=== PATIENT | female | born 1970 | race Caucasian/White ===

== ENCOUNTER → 2017-01-05 | Outpatient (CLI) | payer BC ==
[2017-01-05 08:32] LABS: ALT 41 U/L (9-52); AST 26 U/L (14-36); Anion Gap 15 mmol/L; Blood Urea Nitrogen 3 mg/dL (7-17); Calcium 9.6 mg/dL (8.4-10.2); Carbon Dioxide 24 mmol/L (22-30); Chloride 98 mmol/L (98-107); Glucose 111 mg/dL (74-99); Non-African American GFR(MDRD) >60 (>60 ml/min/1.73 sqM); Potassium 4.8 mmol/L (3.5-5.1); Sodium 137 mmol/L (137-145)
== END | disposition home or self-care (01) ==
LOC: LABWHC1 07:39
PROVIDERS: ATTEND Psychiatry & Neurology Neurology
DX: E87.1 Hypo-osmolality and hyponatremia (principal); E87.6 Hypokalemia
CPT/HCPCS: 36415; 80048; 84450; 84460

== ENCOUNTER → 2017-04-01 | Outpatient (CLI) | payer BC ==
--- NOTE | 2017-04-01 14:37 | MM ---
Reason for exam: screening (asymptomatic). Last mammogram was performed 1 year ago. History: Patient has history of endometrial cancer at age 26. Family history of breast cancer in grandmother, breast cancer in cousin, and breast cancer in aunt. Took hormonal contraceptives for 3 years beginning at age 19. Physical Findings: A clinical breast exam by your physician is recommended on an annual basis and results should be correlated with mammographic findings. MG Screening Mammo w CAD Bilateral CC and MLO view(s) were taken. Prior study comparison: March 31, 2016, bilateral MG screening mammo w CAD. February 03, 2015, bilateral MG screening mammo w CAD. The breast tissue is heterogeneously dense. This may lower the sensitivity of mammography. There is no discrete abnormality. No significant changes when compared with prior studies. ASSESSMENT: Negative, BI-RAD 1 RECOMMENDATION: Routine screening mammogram of both breasts in 1 year.
== END | disposition home or self-care (01) ==
LOC: RADMAMWWP 07:40
PROVIDERS: ATTEND Obstetrics & Gynecology
DX: Z12.31 Encounter for screening mammogram for malignant neoplasm of breast (principal)

== ENCOUNTER 2017-04-14 11:25 | Emergency (ER) | payer BC ==
[2017-04-14 11:28] VITALS: BP 146/73; RESP 20; TEMP 98.4
--- NOTE | 2017-04-14 14:30 | XR ---
EXAMINATION TYPE: XR foot complete bilateral DATE OF EXAM: 04/14/2017 1:58 PM COMPARISON: NONE HISTORY: Pain TECHNIQUE: 3 views bilateral feet FINDINGS: Right foot: No acute fractures are evident. Joint spaces are preserved. Soft tissues are unremarkable . Plantar calcaneal heel spurs present. Left foot: No acute fractures are evident. Joint spaces are preserved. Soft tissues are normal. Plant ar calcaneal heel spur is present. IMPRESSION: 1. Bilateral plantar calcaneal heel spurs. 2. No acute osseous abnormality.
--- NOTE | 2017-04-14 14:54 | ED ---
Extremity Problem HPI - General Chief complaint: Extremity Problem,Nontraumatic Stated complaint: feet pain Time Seen by Provider: 04/14/17 13:11 Source: patient, RN notes reviewed Mode of arrival: ambulatory Limitations: no limitations - History of Present Illness Initial comments: 46-year-old female presents to the emergency Department chief complaint of bilateral foot pain. Patient states she suffers from neuropathy. Patient states that her feet constantly hurt. She last today she's had this pain that radiates across her foot causes her right big toe to spasm. Patient states she was concerned due to the discomfort so she thought that she be evaluated. Patient denies any falls traumas or injuries. Patient states that she is not currently having any other symptoms. Patient denies any recent fever, chills, shortness of breath, chest pain, back pain, abdominal pain, nausea vomiting, numbness or tingling, dysuria or hematuria, constipation or diarrhea, headaches or visual changes, or any other current symptoms. - Related Data Home Medications Medication Instructions Recorded Confirmed Amitriptyline HCl [Amitriptyline 50 mg PO HS 04/14/17 04/14/17 HCl] Gabapentin [Neurontin] 300 mg PO TID 04/14/17 04/14/17 Levothyroxine Sodium [Synthroid] 100 mg PO DAILY 04/14/17 04/14/17 Naltrexone HCl [Revia] 50 mg PO DAILY 04/14/17 04/14/17 Olmesartan Medoxomil [Olmesartan 40 mg PO DAILY 04/14/17 04/14/17 Medoxomil] Sertraline [Zoloft] 50 mg PO DAILY 04/14/17 04/14/17 Allergies Allergy/AdvReac Type Severity Reaction Status Date / Time No Known Allergies Allergy Verified 04/14/17 11:28 Review of Systems ROS Statement: Those systems with pertinent positive or pertinent negative responses have been documented in the HPI. ROS Other: All systems not noted in ROS Statement are negative. Past Medical History Past Medical History: Hypertension, Thyroid Disorder Additional Past Medical History / Comment(s): neuropathy History of Any Multi-Drug Resistant Organisms: None Reported Additional Past Surgical History / Comment(s): D & C, cyst from ovary, Past Psychological History: Anxiety Smoking Status: Never smoker Past Alcohol Use History: Daily Past Drug Use History: None Reported General Exam - General Exam Comments Initial Comments: General: The patient is awake and alert, in no distress, and does not appear acutely ill. Neck: The neck is supple, there is no tenderness. Cardiovascular: There is a regular rate and rhythm. No murmur, rub or gallop is appreciated. Respiratory: Lungs are clear to auscultation, respirations are non-labored, breath sounds are equal. No wheezes, stridor, rales, or rhonchi. Musculoskeletal: Sensation intact with 2+ pulses throughout the bilateral lower extremities. Patient is far torsion ankles and feet. Minimal swelling noted to bilateral ankles. Patient does have some tenderness patient through the plantar fascia area bilaterally. No deformity. Neurological: CN II-XII intact, There are no obvious motor or sensory deficits. Coordination appears grossly intact. Speech is normal. Skin: Skin is warm and dry and no rashes or lesions are noted. Psychiatric: Normal mood and affect. Limitations: no limitations Course Vital Signs 04/14/17 11:26 Temperature 98.4 F Pulse Rate 108 H Respiratory 20 Rate Blood Pressure 146/73 O2 Sat by Pulse 100 Oximetry Medical Decision Making - Medical Decision Making 46-year-old female presents emergency Department chief complaint of bilateral feet pain. Patient does appear to have bilateral heel spurs. We discussed that this is something that can be causing her pain. Discussed this suspicious for plantar fasciitis. Discussed follow-up with or so and/or tipple worker. We did discuss return parameters all questions. She stated she understood and she is in the plan. She will be discharged home. - Radiology Data Radiology results: report reviewed, image reviewed Disposition Clinical Impression: Calcaneal spur of both feet, Plantar fasciitis, bilateral Disposition: HOME SELF-CARE Condition: Stable Instructions: Plantar Fasciitis (ED), Heel Spur (ED) Additional Instructions: Please use medication as discussed. Please follow up with family doctor if symptoms have not improved over the next two days. Please return to the emergency room if your symptoms increase or worsen or for any other concerns. Referrals: Stephanie Lombardi MD [Primary Care Provider] - 1-2 days Reginaldo Schwarz MD [Medical Doctor] - 1-2 days Time of Disposition: 14:54
[2017-04-14 15:05] VITALS: PULSE 80
== END 2017-04-14 15:05 | disposition home or self-care (01) ==
LOC: EC 11:25
DX: M72.2 Plantar fascial fibromatosis (principal); M77.32 Calcaneal spur, left foot; M77.31 Calcaneal spur, right foot; I10 Essential (primary) hypertension; E07.9 Disorder of thyroid, unspecified; F41.9 Anxiety disorder, unspecified; G62.9 Polyneuropathy, unspecified; Z79.899 Other long term (current) drug therapy
CPT/HCPCS: 99283

== ENCOUNTER → 2018-06-16 | Outpatient (CLI) | payer BC ==
--- NOTE | 2018-06-21 11:09 | MM ---
Reason for exam: screening (asymptomatic). Last mammogram was performed 1 year and 2 months ago. History: Patient has history of endometrial cancer at age 26. Family history of breast cancer in grandmother, breast cancer in cousin, and breast cancer in aunt. Took hormonal contraceptives for 3 years beginning at age 19. Physical Findings: A clinical breast exam by your physician is recommended on an annual basis and results should be correlated with mammographic findings. MG 3D Screening Mammo Wo Cad Bilateral CC and MLO view(s) were taken. Prior study comparison: April 01, 2017, bilateral MG screening mammo w CAD. March 31, 2016, bilateral MG screening mammo w CAD. The breast tissue is heterogeneously dense. This may lower the sensitivity of mammography. No suspicious abnormality. No significant changes when compared with prior studies. ASSESSMENT: Negative, BI-RAD 1 RECOMMENDATION: Routine screening mammogram of both breasts in 1 year.
== END | disposition home or self-care (01) ==
LOC: RADMAMWWP 07:25
PROVIDERS: ATTEND Obstetrics & Gynecology
DX: Z12.31 Encounter for screening mammogram for malignant neoplasm of breast (principal); Z80.3 Family history of malignant neoplasm of breast
CPT/HCPCS: 77063; 77067

== ENCOUNTER 2019-02-19 10:23 | Emergency (ER) | payer BC ==
[2019-02-19 10:26] VITALS: RESP 18; TEMP 98.3
--- NOTE | 2019-02-19 10:52 | XR ---
EXAMINATION TYPE: XR knee complete LT DATE OF EXAM: 02/19/2019 CLINICAL HISTORY: Fall injury this morning with pain. TECHNIQUE: Three views of the left knee are obtained. COMPARISON: None. FINDINGS: There is no acute fracture/dislocation evident in left knee. Mild tricompartment joint spa ce loss is seen. Overlying clothing or pannus material distal femur level is noted. There appears to be mild to moderate diffuse subcutaneous edema medially and laterally. Focal soft tissue swelling sup erior to the patella anterior to distal quadriceps tendon is noted, cannot exclude subcutaneous hemat parvez or injury. IMPRESSION: There is no acute fracture or dislocation in the left knee.
--- NOTE | 2019-02-19 10:53 | ED ---
Lower Extremity Injury HPI - General Chief Complaint: Extremity Injury, Lower Stated Complaint: LEFT KNEE INJURY Time Seen by Provider: 02/19/19 10:27 Source: patient Mode of arrival: wheelchair Limitations: no limitations - History of Present Illness Initial Comments: 48-year-old female presenting today for chief complaint of left knee pain. Patient states she was walking to her car to take her son to school when she slipped on ice falling on left knee. Patient states the knee twisted outwards, denies dislocation. Patient denies injury to the upper extremity, head injury loss of consciousness. Patient denies back or neck pain. Patient states it was her left knee that took most of the force. She denies pain at the left ankle. Patient denies numbness tingling loss sensation coolness or pallor of the extremity. Patient states she was initially able to weight-bear and walk however swelling has increased as well as the pain making it difficult to fully weight-bear. Remaining review of systems negative, patient denies any recent fever, chills, shortness of breath, chest pain, back pain, abdominal pain, nausea or vomiting, numbness or tingling, dysuria or hematuria, constipation or diarrhea, headaches or visual changes, or any other complaints. - Related Data Home Medications Medication Instructions Recorded Confirmed Gabapentin [Neurontin] 300 mg PO TID 04/14/17 02/19/19 Levothyroxine Sodium [Synthroid] 100 mg PO DAILY 04/14/17 02/19/19 Naltrexone HCl [Revia] 50 mg PO DAILY 04/14/17 02/19/19 Olmesartan Medoxomil 40 mg PO DAILY 04/14/17 02/19/19 Sertraline [Zoloft] 50 mg PO DAILY 04/14/17 02/19/19 Amitriptyline HCl [Elavil] 100 mg PO DAILY 02/19/19 02/19/19 Allergies Allergy/AdvReac Type Severity Reaction Status Date / Time No Known Allergies Allergy Verified 02/19/19 10:35 Review of Systems ROS Statement: Those systems with pertinent positive or pertinent negative responses have been documented in the HPI. ROS Other: All systems not noted in ROS Statement are negative. Past Medical History Past Medical History: Hypertension, Thyroid Disorder Additional Past Medical History / Comment(s): neuropathy History of Any Multi-Drug Resistant Organisms: None Reported Additional Past Surgical History / Comment(s): D & C, cyst from ovary, Past Psychological History: Anxiety Smoking Status: Never smoker Past Alcohol Use History: Daily Past Drug Use History: None Reported General Exam - General Exam Comments Initial Comments: General: The patient is awake and alert, in no distress, and does not appear acutely ill. Eye: +3 mm pupils are equal, round and reactive to light, extra-ocular movements are intact. No nystagmus. There is normal conjunctiva bilaterally. No signs of icterus. Ears, nose, mouth and throat: There are moist mucous membranes and no oral lesions. Neck: The neck is supple, there is no tenderness or JVD. Cardiovascular: There is a regular rate and rhythm. No murmur, rub or gallop is appreciated. Respiratory: Lungs are clear to auscultation, respirations are non-labored, breath sounds are equal. No wheezes, stridor, rales, or rhonchi. Musculoskeletal: Upon inspection of the knees bilaterally there is increased soft tissue swelling of the left knee as well as area of ecchymosis of the medial aspect of anterior knee. Patella midline. Patient is diffusely tender to palpation of the anterior left knee. No pain to palpation of left ankle or hip. Patient is able to fully range at the left ankle. She is able to extend at the left knee however states this is painful. Normal ROM, no tenderness of the right lower extremity as well as the upper extremities. Strength 5/5 at the left ankle and knee equal in comparison with the right. Sensation intact proximal and distal to injury site equal when compared to the unaffected extremity. Radial and DP pulses equal bilaterally 2+. Capillary refill < 2 seconds. Neurological: A&O x 3. CN II-XII intact, There are no obvious motor or sensory deficits. Coordination appears grossly intact. Speech is normal. Skin: Skin is warm and dry and no rashes or lesions are noted. Psychiatric: Cooperative, appropriate mood & affect, normal judgment. Limitations: no limitations Course Vital Signs 02/19/19 02/19/19 10:25 11:49 Temperature 98.3 F Pulse Rate 89 96 Respiratory 18 18 Rate Blood Pressure 133/75 105/70 O2 Sat by Pulse 96 96 Oximetry Medical Decision Making - Medical Decision Making 48-year-old female presented for mechanical fall. Soft tissue swelling and ecchymosis of the left knee noted. Extensor mechanism intact. Patient given ice. Patient refused pain medication at this time. Patient was able to initially weight-bear, stating pain has increased since fall. Since her mechanism intact. Patient neurovascularly intact. +2 DP pulses, warm lower extremities b/l. X-rays revealed no acute osseous injury. Concern for possible ligamentous. Patient was placed in knee immobilizer. Patient given presc ription for crutches however she refused stating she has a pair crutches at home. Patient struck to follow-up with orthopedist surgery outpatient in the next 1-2 days. Patient is agreeable to plan of care as well as discharge recommendations. Return parameters were discussed at length the patient verbalized understanding. I did discuss the case with her provider Dr. Diaz prior to patient's discharge agreeable plan of care as well as outpatient follow-up. In addition to palpation follow-up patient is instructed to rest ice compress and elevate the left knee. Disposition Clinical Impression: Left knee sprain Disposition: HOME SELF-CARE Condition: Good Instructions (If sedation given, give patient instructions): Knee Sprain (ED) Additional Instructions: Please use medication as discussed. Please follow-up with orthopedic surgery in the next 2-3 days. These use crutches for ambulation. Please return to emergency room if the symptoms increase or worsen or for any other concerns. Is patient prescribed a controlled substance at d/c from ED?: No Referrals: Stephanie Lombardi MD [Primary Care Provider] - 1-2 days Jose Adler MD [STAFF PHYSICIAN] - 1-2 days Time of Disposition: 10:56
[2019-02-19 11:52] VITALS: BP 105/70; PULSE 96
== END 2019-02-19 11:52 | disposition home or self-care (01) ==
LOC: EC 10:23
DX: S83.92XA Sprain of unspecified site of left knee, initial encounter (principal); I10 Essential (primary) hypertension; E07.9 Disorder of thyroid, unspecified; F41.9 Anxiety disorder, unspecified; G62.9 Polyneuropathy, unspecified; Z79.890 Hormone replacement therapy; Z79.899 Other long term (current) drug therapy; Z53.29 Procedure and treatment not carried out because of patient's decision for other reasons; W00.0XXA Fall on same level due to ice and snow, initial encounter; X50.1XXA Overexertion from prolonged static or awkward postures, initial encounter; Y93.01 Activity, walking, marching and hiking; Y92.89 Other specified places as the place of occurrence of the external cause
CPT/HCPCS: 99283

== ENCOUNTER → 2019-08-22 | Outpatient (CLI) | payer BC ==
--- NOTE | 2019-08-23 11:34 | MM ---
Reason for exam: screening (asymptomatic). Last mammogram was performed 1 year and 2 months ago. History: Patient has history of endometrial cancer at age 26. Family history of breast cancer in grandmother, breast cancer in cousin, and breast cancer in aunt. Took hormonal contraceptives for 3 years beginning at age 19. Physical Findings: A clinical breast exam by your physician is recommended on an annual basis and results should be correlated with mammographic findings. MG 3D Screening Mammo W/Cad Bilateral CC and MLO view(s) were taken. Prior study comparison: June 16, 2018, bilateral MG 3d screening mammo wo cad. April 01, 2017, bilateral MG screening mammo w CAD. The breast tissue is heterogeneously dense. This may lower the sensitivity of mammography. No suspicious abnormality. Prominent axillary lymph nodes bilaterally are unchanged. No significant changes when compared with prior studies. ASSESSMENT: Negative, BI-RAD 1 RECOMMENDATION: Routine screening mammogram of both breasts in 1 year.
== END | disposition home or self-care (01) ==
LOC: RADMAMWWP 07:35
PROVIDERS: ATTEND Obstetrics & Gynecology
DX: Z12.31 Encounter for screening mammogram for malignant neoplasm of breast (principal)
CPT/HCPCS: 77063; 77067

== ENCOUNTER 2020-07-11 07:53 | Day surgery (SDC) | payer BC ==
[2020-07-09 14:22] VITALS: BMI 41.4
[~2020-07-11 07:53] MED LIST: LACTATED RINGERS 1,000 ML IV SCH
[2020-07-11] MEDS ORDERED: LIDOCAINE 1% (10MG/ML) FOR IV START INTRADERMA ONE (08:30)
[2020-07-11 08:40] VITALS: TEMP 97.6
[2020-07-11] MEDS ORDERED: PROPOFOL 10 MG/ML 20 ML VIAL IV ONE (09:43)
[2020-07-11] MEDS ORDERED: IV FLUID CONTINUATION 1,000 ML IV ONE (09:57)
--- NOTE | 2020-07-11 10:09 | P.PCN ---
Date of Procedure: 07/11/20 Procedure(s) Performed: BRIEF HISTORY: Patient is a 49 [id number] [place] white female scheduled for an elective colonoscopy as a part of screening for colorectal neoplasia. PROCEDURE PERFORMED: Colonoscopy. PREOPERATIVE DIAGNOSIS: Screening for colon cancer. IV sedation per Anesthesia. PROCEDURE: After informed consent was obtained, the patient, was brought into the endoscopy unit. IV sedation was administered by Anesthesia under continuous monitoring. Digital rectal examination was normal. Initially the Olympus CF-160 flexible video colonoscope was then inserted in the rectum, gradually advanced into the cecum without any difficulty. Careful examination was performed as the scope was gradually being withdrawn. Ileocecal valve and the appendiceal orifice were visualized and appeared normal. Prep was fair.. Mucosa of the cecum, ascending colon, transverse colon, descending colon, sigmoid colon, and rectum appeared normal. Retroflexion was performed in the rectum and no lesions were seen. The patient tolerated the procedure well. IMPRESSION: Normal-appearing colon from rectum to cecum with no evidence of colorectal neoplasia . RECOMMENDATIONS: Findings of this examination were discussed with the patient as well as a family. She was advised to have a repeat screening colonoscopy in 10 years..
[2020-07-11 10:20] VITALS: BP 127/67; PULSE 70; RESP 18
== END 2020-07-11 10:31 | disposition home or self-care (01) ==
LOC: ORWHC2ENDO 07:53
PROVIDERS: ATTEND Internal Medicine Gastroenterology
DX: Z12.11 Encounter for screening for malignant neoplasm of colon (principal); I10 Essential (primary) hypertension; Z87.891 Personal history of nicotine dependence; E07.9 Disorder of thyroid, unspecified; Z79.890 Hormone replacement therapy; Z79.899 Other long term (current) drug therapy
CPT/HCPCS: 84703; 45378; J2704

== ENCOUNTER → 2021-09-04 | Outpatient (CLI) | payer BC ==
--- NOTE | 2021-09-07 10:39 | MM ---
Reason for exam: screening (asymptomatic). Last mammogram was performed 2 years ago. History: Patient has history of endometrial cancer at age 26. Family history of breast cancer in grandmother, breast cancer in cousin, and breast cancer in aunt. Took hormonal contraceptives for 3 years beginning at age 19. Physical Findings: A clinical breast exam by your physician is recommended on an annual basis and results should be correlated with mammographic findings. MG 3D Screening Mammo W/Cad Bilateral CC and MLO view(s) were taken. Prior study comparison: August 22, 2019, bilateral MG 3d screening mammo w/cad. June 16, 2018, bilateral MG 3d screening mammo wo cad. The breast tissue is heterogeneously dense. This may lower the sensitivity of mammography. There is no discrete abnormality. No significant changes when compared with prior studies. ASSESSMENT: Negative, BI-RAD 1 RECOMMENDATION: Routine screening mammogram of both breasts in 1 year.
== END | disposition home or self-care (01) ==
LOC: RADMAMWWP 08:24
PROVIDERS: ATTEND Obstetrics & Gynecology
DX: Z12.31 Encounter for screening mammogram for malignant neoplasm of breast (principal); Z80.3 Family history of malignant neoplasm of breast
CPT/HCPCS: 77063; 77067

== ENCOUNTER → 2023-02-04 | Outpatient (CLI) | payer BC ==
--- NOTE | 2023-02-04 11:36 | BD ---
EXAMINATION TYPE: Axial Bone Density DATE OF EXAM: 02/04/2023 CLINICAL HISTORY: 52 years old Female. ICD-10 CODE: N95.1 Post Menopausal Height: 60.5 in Weight: 216 lbs RISK FACTORS HISTORY OF: Family History of Osteoporosis: yes mother Active: yes Diet low in dairy products/other sources of calcium: yes If Premenopausal, do you have irregular periods: yes MEDICATIONS: Thyroid Medications: yes Which medication: Levothyroxine How Lon+ years Additional Medications: vit d, sleep aid meds, gabapentin, blood pressure meds, zoloft Additional History: mole cancer with chemo EXAM MEASUREMENTS: Bone mineral densitometry was performed using the [employer] System. Bone mineral density as measured about the Lumbar spine is: ----- L1-L4(G/cm2): 1.225 T Score Values are as follows: ----- L1: -1.0 ----- L2: 0.9 ----- L3: 0.9 ----- L4: 0.4 ----- L1-L4: 0.4 Z Score Values are as follows: ----- L1: -1.4 ----- L2: 0.4 ----- L3: 0.5 ----- L4: -0.1 ----- L1-L4: -0.1 Bone mineral density baseline Bone mineral density about the R hip (g/cm2): 0.963 Bone mineral density about the L hip (g/cm2): 0.991 T Score values are as follows: -----R Neck: -1.5 -----L Neck: -0.7 -----R Total: -0.4 -----L Total: -0.1 Z Score values are as follows: -----R Neck: -1.3 -----L Neck: -0.5 -----R Total: -0.6 -----L Total: -0.3 Bone mineral density baseline FRAX%s: The graph provided illustrates a 5.1 chance for a major osteoporotic fx and a 0.4 chance for the hips probability for fx in 10 years time. IMPRESSION: Osteopenia (T Score between -2.5 and -1). There is slightly increased risk of fracture and the patient may be considered for treatment. Re-Screen 2-5 years. NOTE: T-SCORE=SD OF THE YOUNG ADULT MEAN.
--- NOTE | 2023-02-07 07:41 | MM ---
Reason for Exam: Screening (asymptomatic). Last mammogram was performed 1 year(s) and 5 month(s) ago. Patient History: Menarche at age 9. First Full-Term at age 21. Endometrial cancer, age 26. Hormonal Contraceptives for 3 years from age 19 until age 21. Maternal grandmother had breast cancer. Maternal cousin had breast cancer. Maternal aunt had breast cancer. Last menstrual period: 11/01/2022 Risk Values: Gunjan 5 year model risk: 1.1%. NCI Lifetime model risk: 8.4%. Prior Study Comparison: 06/16/2018 Bilateral Screening Mammogram, [facility]. 08/22/2019 Bilateral Screening Mammogram, [facility]. 09/04/2021 Bilateral Screening Mammogram, [facility]. Tissue Density: There are scattered fibroglandular densities. Findings: Analyzed By CAD. Benign-appearing bilateral axillary lymph nodes are redemonstrated. There is no suspicious new group of microcalcifications or new suspicious mass in either breast. Overall Assessment: Benign, BI-RAD 2 Management: Screening Mammogram of both breasts in 1 year. A clinical breast exam by your physician is recommended on an annual basis and results should be correlated with mammographic findings. Electronically signed and approved by: Josué Weems M.D.
== END | disposition home or self-care (01) ==
LOC: RADMAMWWP 09:45
PROVIDERS: ATTEND Obstetrics & Gynecology
DX: Z12.31 Encounter for screening mammogram for malignant neoplasm of breast (principal); M85.89 Other specified disorders of bone density and structure, multiple sites; N95.1 Menopausal and female climacteric states; Z80.3 Family history of malignant neoplasm of breast
CPT/HCPCS: 77063; 77067; 77080

== ENCOUNTER → 2024-07-09 | Outpatient (CLI) | payer BC ==
--- NOTE | 2024-07-27 20:29 | MM ---
Reason for Exam: Screening (asymptomatic). Last mammogram was performed 1 year(s) and 5 month(s) ago. Patient History: Menarche at age 9. First Full-Term at age 21. Endometrial cancer, age 26. Hormonal Contraceptives for 3 years from age 19 until age 21. Maternal grandmother had breast cancer. Maternal cousin had breast cancer. Maternal aunt had breast cancer. Risk Values: Gunjan 5 year model risk: 1.1%. NCI Lifetime model risk: 8.2%. Prior Study Comparison: 08/22/2019 Bilateral Screening Mammogram, [facility]. 09/04/2021 Bilateral Screening Mammogram, [facility]. 02/04/2023 Bilateral MG 3D screening mammo w/cad, [facility]. Tissue Density: There are scattered areas of fibroglandular density. Findings: Analyzed By CAD. Similar prominent bilateral axillary lymph nodes. There is no suspicious group of microcalcifications or new suspicious mass in either breast. Overall Assessment: Benign, BI-RAD 2 Management: Screening Mammogram of both breasts in 1 year. . Patient should continue monthly self-breast exams. A clinical breast exam by your physician is recommended on an annual basis. This exam should not preclude additional follow-up of suspicious palpable abnormalities. Note on Gunjan scores and lifetime risk: 1. A Gunjan score greater than 3% is considered moderate risk. If this is the case, consider specialist referral to assess eligibility for a risk reducing agent. 2. If overall lifetime risk for the development of breast cancer is 20% or higher, the patient may qualify for future screening with alternating mammogram and breast MRI. Electronically signed and approved by: Susan Kan M.D. Radiologist
== END | disposition home or self-care (01) ==
LOC: RADMAMWWP 14:57
PROVIDERS: ATTEND Urology
DX: Z12.31 Encounter for screening mammogram for malignant neoplasm of breast (principal); Z80.3 Family history of malignant neoplasm of breast; R92.323 Mammographic fibroglandular density, bilateral breasts
CPT/HCPCS: 77063; 77067